=== PATIENT | male | born 1960 | race Caucasian/White ===

== ENCOUNTER 2017-03-19 05:49 | Inpatient (IN) | payer BC ==
--- NOTE | 2017-03-19 06:27 | ED ---
Weakness HPI - General Chief complaint: Weakness Stated complaint: afib Time Seen by Provider: 03/19/17 06:16 Source: patient Mode of arrival: wheelchair Limitations: no limitations - History of Present Illness Initial comments: This patient is a 56-year-old man who lives in [facility] but is in the area visiting family member. He does give history of paroxysmal atrial fibrillation. He states that he started having similar symptoms to previous episodes early this morning. He noted that he was developing exertional dyspnea and generalized weakness. He states that if he walks over about 10-15 feet he becomes winded, and this is what he has had previously with the atrial fibrillation. He denies feeling chest pain. He has not had diaphoresis, nausea or vomiting. Patient has not noted palpitations but states that he has not felt palpitations with the previous episodes. He has been compliant with his medical regimen. Patient denies leg pain or swelling. MD Complaint: lack of energy, difficulty walking -: hour(s) Consistency: constant Improves with: none Worsens with: exertion Context: history of similar Associated Symptoms: shortness of breath - Related Data Home Medications Medication Instructions Recorded Confirmed Apixaban [Eliquis] 5 mg PO BID 09/18/14 03/19/17 Propafenone Sr [Rythmol Sr] 225 mg PO Q12HR 03/19/17 03/19/17 Tamsulosin HCl [Flomax] 0.4 mg PO DAILY 03/19/17 03/19/17 Allergies Allergy/AdvReac Type Severity Reaction Status Date / Time No Known Allergies Allergy Verified 03/19/17 08:11 Review of Systems ROS Statement: Those systems with pertinent positive or pertinent negative responses have been documented in the HPI. ROS Other: All systems not noted in ROS Statement are negative. Constitutional: Reports: weakness Respiratory: Reports: dyspnea. Denies: cough, wheezes Cardiovascular: Reports: dyspnea on exertion. Denies: chest pain, palpitations , orthopnea, edema, syncope Gastrointestinal: Denies: abdominal pain, vomiting, diarrhea Musculoskeletal: Denies: back pain Skin: Denies: rash Neurological: Denies: headache, weakness, numbness, paresthesias Past Medical History Past Medical History: Atrial Fibrillation, Deep Vein Thrombosis (DVT) Additional Past Medical History / Comment(s): hypoglycemia, cardioversion, BPH History of Any Multi-Drug Resistant Organisms: None Reported Past Surgical History: Appendectomy, Hernia Repair Past Psychological History: No Psychological Hx Reported Smoking Status: Never smoker Past Alcohol Use History: Occasional Past Drug Use History: None Reported General Exam Limitations: no limitations General appearance: alert, in no apparent distress Head exam: Present: atraumatic, normocephalic Eye exam: Present: normal appearance. Absent: scleral icterus, conjunctival injection ENT exam: Present: normal oropharynx Respiratory exam: Present: normal lung sounds bilaterally. Absent: respiratory distress, wheezes, rales, rhonchi, stridor Cardiovascular Exam: Present: tachycardia, irregular rhythm, normal heart sounds. Absent: systolic murmur, diastolic murmur, rubs, gallop GI/Abdominal exam: Present: soft. Absent: distended, tenderness, guarding, rebound, rigid, mass Extremities exam: Present: normal inspection, normal capillary refill. Absent: pedal edema, calf tenderness Back exam: Present: normal inspection. Absent: CVA tenderness (R), CVA tenderness (L) Neurological exam: Present: alert Skin exam: Present: warm, dry, intact, normal color. Absent: rash Course Vital Signs 03/19/17 03/19/17 03/19/17 05:56 06:37 07:10 Temperature 97.0 F L Pulse Rate 65 155 H 78 Respiratory 20 20 16 Rate Blood Pressure 109/72 217/86 164/80 O2 Sat by Pulse 98 99 97 Oximetry 03/19/17 03/19/17 07:50 08:00 Temperature Pulse Rate 129 H 128 H Respiratory 16 16 Rate Blood Pressure 119/60 129/81 O2 Sat by Pulse 96 97 Oximetry EKG Findings - EKG Results: EKG: interpreted by ERMD, normal axis, normal QRS, normal ST/T EKG shows: tachycardia, atrial fibrillation (Rate approximately 148 bpm) Medical Decision Making - Medical Decision Making Patient's 56-year-old man with paroxysmal atrial fibrillation. Symptoms started morning. Case discussed with cardiology and will be admitted. - Lab Data Result diagrams: 03/19/17 06:20 03/19/17 06:20 Lab Results 03/19/17 03/19/17 03/19/17 Range/Units 06:20 06:20 06:20 WBC 5.2 (3.8-10.6) k/uL RBC 5.41 (4.30-5.90) m/uL Hgb 15.9 (13.0-17.5) gm/dL Hct 46.7 (39.0-53.0) % MCV 86.2 (80.0-100.0) fL MCH 29.3 (25.0-35.0) pg MCHC 34.0 (31.0-37.0) g/dL RDW 13.8 (11.5-15.5) % Plt Count 191 (150-450) k/uL Neutrophils % 58 % Lymphocytes % 26 % Monocytes % 9 % Eosinophils % 3 % Basophils % 1 % Neutrophils # 3.0 (1.3-7.7) k/uL Lymphocytes # 1.4 (1.0-4.8) k/uL Monocytes # 0.5 (0-1.0) k/uL Eosinophils # 0.1 (0-0.7) k/uL Basophils # 0.0 (0-0.2) k/uL PT (9.0-12.0) sec INR (<1.2) APTT (22.0-30.0) sec D-Dimer (<0.60) mg/L FEU Sodium 141 (137-145) mmol/L Potassium 4.1 (3.5-5.1) mmol/L Chloride 108 H (98-107) mmol/L Carbon Dioxide 22 (22-30) mmol/L Anion Gap 11 mmol/L BUN 22 H (9-20) mg/dL Creatinine 0.96 (0.66-1.25) mg/dL Est GFR (MDRD) Af Amer >60 (>60 ml/min/1.73 sqM) Est GFR (MDRD) Non-Af >60 (>60 ml/min/1.73 sqM) Glucose 117 H (74-99) mg/dL Calcium 9.3 (8.4-10.2) mg/dL Magnesium 1.8 (1.6-2.3) mg/dL Total Bilirubin 0.9 (0.2-1.3) mg/dL AST 20 (17-59) U/L ALT 37 (21-72) U/L Alkaline Phosphatase 58 (38-126) U/L Total Creatine Kinase 92 (55-170) U/L CK-MB (CK-2) 0.7 (0.0-2.4) ng/mL CK-MB (CK-2) Rel Index 0.8 Troponin I 0.021 (0.000-0.034) ng/mL Total Protein 6.3 (6.3-8.2) g/dL Albumin 3.7 (3.5-5.0) g/dL TSH 1.730 (0.465-4.680) mIU/L 03/19/17 Range/Units 06:20 WBC (3.8-10.6) k/uL RBC (4.30-5.90) m/uL Hgb (13.0-17.5) gm/dL Hct (39.0-53.0) % MCV (80.0-100.0) fL MCH (25.0-35.0) pg MCHC (31.0-37.0) g/dL RDW (11.5-15.5) % Plt Count (150-450) k/uL Neutrophils % % Lymphocytes % % Monocytes % % Eosinophils % % Basophils % % Neutrophils # (1.3-7.7) k/uL Lymphocytes # (1.0-4.8) k/uL Monocytes # (0-1.0) k/uL Eosinophils # (0-0.7) k/uL Basophils # (0-0.2) k/uL PT 10.3 (9.0-12.0) sec INR 1.1 (<1.2) APTT 26.1 (22.0-30.0) sec D-Dimer 0.24 (<0.60) mg/L FEU Sodium (137-145) mmol/L Potassium (3.5-5.1) mmol/L Chloride (98-107) mmol/L Carbon Dioxide (22-30) mmol/L Anion Gap mmol/L BUN (9-20) mg/dL Creatinine (0.66-1.25) mg/dL Est GFR (MDRD) Af Amer (>60 ml/min/1.73 sqM) Est GFR (MDRD) Non-Af (>60 ml/min/1.73 sqM) Glucose (74-99) mg/dL Calcium (8.4-10.2) mg/dL Magnesium (1.6-2.3) mg/dL Total Bilirubin (0.2-1.3) mg/dL AST (17-59) U/L ALT (21-72) U/L Alkaline Phosphatase (38-126) U/L Total Creatine Kinase (55-170) U/L CK-MB (CK-2) (0.0-2.4) ng/mL CK-MB (CK-2) Rel Index Troponin I (0.000-0.034) ng/mL Total Protein (6.3-8.2) g/dL Albumin (3.5-5.0) g/dL TSH (0.465-4.680) mIU/L - EKG Data -: EKG Interpreted by Mi EKG shows normal: axis (Normal), intervals (Normal), QRS complexes (Normal) Rate: tachycardia (Rate approximately 150 bpm) Interpretation: other (Atrial fibrillation) Critical Care Time Critical Care Time: Yes (30 minutes) Disposition Clinical Impression: Atrial fibrillation with rapid ventricular response Disposition: ADMITTED IP TO THIS [facility] Condition: Good
--- NOTE | 2017-03-19 06:46 | XR ---
EXAM: XR Chest, 1 View CLINICAL HISTORY: dysrhythmia TECHNIQUE: Frontal view of the chest. COMPARISON: Chest x-ray dated 09/18/2014. FINDINGS: Lungs: Unremarkable. The lungs are clear. Pleural space: Unremarkable. No pneumothorax. Heart: Unremarkable. No cardiomegaly. Mediastinum: Unremarkable. Bones/joints: Unremarkable. IMPRESSION: Normal chest x-ray.
[2017-03-19 06:53] LABS: D-Dimer 0.24 mg/L FEU (<0.60)
[2017-03-19 06:57] LABS: INR 1.1 (<1.2); Partial Thromboplastin Time 26.1 sec (22.0-30.0); Prothrombin Time 10.3 sec (9.0-12.0)
[2017-03-19 06:59] LABS: ALT 37 U/L (21-72); AST 20 U/L (17-59); Albumin 3.7 g/dL (3.5-5.0); Alkaline Phosphatase 58 U/L (38-126); Anion Gap 11 mmol/L; Blood Urea Nitrogen 22 mg/dL (9-20); Calcium 9.3 mg/dL (8.4-10.2); Carbon Dioxide 22 mmol/L (22-30); Chloride 108 mmol/L (98-107); Glucose 117 mg/dL (74-99); Magnesium 1.8 mg/dL (1.6-2.3); Potassium 4.1 mmol/L (3.5-5.1); Sodium 141 mmol/L (137-145); Total Bilirubin 0.9 mg/dL (0.2-1.3); Total Protein 6.3 g/dL (6.3-8.2)
[2017-03-19 07:10] LABS: Basophils % (A) 1 %; Eosinophils # (A) 0.1 k/uL (0-0.7); Eosinophils % (A) 3 %; HCT 46.7 % (39.0-53.0); HGB 15.9 gm/dL (13.0-17.5); Lymphocytes # (A) 1.4 k/uL (1.0-4.8); Lymphocytes % (A) 26 %; MCH 29.3 pg (25.0-35.0); MCV 86.2 fL (80.0-100.0); Mean Platelet Volume 7.8; Monocytes # (A) 0.5 k/uL (0-1.0); Monocytes % (A) 9 %; Neutrophils % (A) 58 %; Platelet Count 191 k/uL (150-450); RBC 5.41 m/uL (4.30-5.90); RDW 13.8 % (11.5-15.5); WBC 5.2 k/uL (3.8-10.6)
[2017-03-19] MEDS ORDERED: PROPAFENONE 150 MG TAB PO STA (07:18)
[2017-03-19] MEDS ORDERED: DILTIAZEM 5 MG/ML 5 ML VIAL IVP STA (07:19)
[2017-03-19] MEDS ORDERED: DILTIAZEM 125 MG in SODIUM CHLORIDE 0.9% 100 ML IV ONE (07:19)
[2017-03-19 07:22] LABS: Creatine Kinase MB 0.7 ng/mL (0.0-2.4); Troponin I 0.021 ng/mL (0.000-0.034)
[2017-03-19] MEDS ORDERED: NITROGLYCERIN SL TABS 0.4 MG TAB SUBLINGUAL PRN (08:31)
[2017-03-19] MEDS ORDERED: APIXABAN 5 MG TAB PO STA (08:50)
[2017-03-19] MEDS ORDERED: PROPAFENONE 225 MG PO STA (08:50)
[2017-03-19] MEDS: PROPAFENONE 150 MG TAB PO SCH ×3 (09:09→21:17)
[2017-03-19] MEDS: TAMSULOSIN 0.4 MG CAP.ER.24H PO STA ×2 (09:20→09:21)
[2017-03-19 13:32] LABS: Creatine Kinase MB 0.8 ng/mL (0.0-2.4); Troponin I 0.014 ng/mL (0.000-0.034)
[2017-03-19 15:52] VITALS: RESP 18
[2017-03-19] MEDS: SODIUM CHLORIDE 0.9% 1,000 ML IV SCH ×3 (16:43→21:16)
[2017-03-19 19:42] LABS: Creatine Kinase 69 U/L (55-170)
[2017-03-19 19:56] LABS: Creatine Kinase MB 0.7 ng/mL (0.0-2.4); Troponin I <0.012 ng/mL (0.000-0.034)
--- NOTE | 2017-03-19 21:12 | P.HPIM ---
History of Present Illness H&P Date: 03/19/17 Chief Complaint: Dizziness and weakness Patient is a 56-year-old male with a known history of paroxysmal atrial fibrillation, history of cardioversion, BPH and history of DVT who lives in [facility] but is in the area visiting his mother at [place]. He states that he started having symptoms of rapid ventricular rate around 3 AM last night.. He noted that he was developing exertional dyspnea and generalized weakness. He states that if he walks over about 10-15 feet he becomes winded, and this is what he has had previously with the atrial fibrillation. He denies feeling chest pain. He has not had diaphoresis, nausea or vomiting. Patient has not noted palpitations but states that he has not felt palpitations with the previous episodes. He has been compliant with his medical regimen. Patient does take propafenone currently. Patient says that he was tried on different medications for rate control previously. Patient denies leg pain or swelling. Denied any history of coronary artery disease. EKG atrial fibrillation with a rapid regular rate of 148 Chest x-ray showed no acute cardio pulmonary process TSH within normal limits Troponin 3 negative Review of Systems Constitutional: Patient denies any fever or chills . Positive generalized weakness and in no weight loss. Abdomen: Patient denied nausea vomiting and diarrhea and abdominal pain. Cardiovascular: Patient denies any chest pain or short of breath no palpitations. Did have dizziness and exertional short of breath Respiratory: patient denied any cough is from production. No shortness of breath Neurologic: Patient denied any numbness or tingling headache. Musculoskeletal: Patient denies any complaints of joint swelling or deformity. Skin: Negative Psychiatric: Negative Endocrine: No heat or cold intolerance. No recent weight gain. Genitourinary: No dysuria or hematuria. All other 14 point ROS negative except the above Past Medical History Past Medical History: Atrial Fibrillation, Deep Vein Thrombosis (DVT), Prostate Disorder Additional Past Medical History / Comment(s): Paroxysmal Afib, DVT L leg after long flight, hypoglycemia but not for years, BPH History of Any Multi-Drug Resistant Organisms: None Reported Past Surgical History: Appendectomy, Hernia Repair Additional Past Surgical History / Comment(s): Incisional hernia repair after appendectomy, cardioversions x 3, colonoscopy-normal, R knee Lucia's cystectomy Past Anesthesia/Blood Transfusion Reactions: No Reported Reaction Smoking Status: Never smoker - Past Family History Mother Family Medical History: Blood Disorder, Deep Vein Thrombosis (DVT), Musculoskeletal Disorder, Neurologic Disorder Additional Family Medical History / Comment(s): Mother has parkinson's dx and recently diagnosed with hypercoagulopathy. She has had a couple DVTs. Medications and Allergies Home Medications Medication Instructions Recorded Confirmed Type Apixaban [Eliquis] 5 mg PO BID 09/18/14 03/19/17 History Propafenone Sr [Rythmol Sr] 225 mg PO Q12HR 03/19/17 03/19/17 History Tamsulosin HCl [Flomax] 0.4 mg PO DAILY 03/19/17 03/19/17 History Allergies Allergy/AdvReac Type Severity Reaction Status Date / Time No Known Allergies Allergy Verified 03/19/17 08:11 Physical Exam Vitals: Vital Signs Temp Pulse Resp BP Pulse Ox 03/19/17 13:02 77 16 111/69 97 03/19/17 09:00 110 H 16 109/80 98 03/19/17 08:00 128 H 16 129/81 97 03/19/17 07:50 129 H 16 119/60 96 03/19/17 07:10 78 16 164/80 97 03/19/17 06:37 155 H 20 217/86 99 03/19/17 05:56 97.0 F L 65 20 109/72 98 Intake and Output 03/18/17 03/19/17 03/19/17 22:59 06:59 14:59 Other: Weight 106.594 kg PHYSICAL EXAMINATION: Patient is lying in the bed comfortably, no acute distress, awake alert and oriented.. HEENT: Normocephalic. Neck is supple. Pupils reactive. Nostrils clear. Oral cavity is moist. Ears reveal no drainage. Neck reveals no JVD, carotid bruits, or thyromegaly. CHEST EXAMINATION: Trachea is central. Symmetrical expansion. Lung hernández clear to auscultation and percussion. CARDIAC: Normal S1, S2 with no gallops. No murmurs ABDOMEN: Soft. Bowel sounds normal. No organomegaly. No abdominal bruits. Extremities: reveal no edema. No clubbing or cyanosis Neurologically awake, alert, oriented x3 with well-coordinated movements. No focal deficits noted Skin: No rash or skin lesions. Psychiatric: Coperative. Nonsuicidal Musculoskeletal: No joint swelling or deformity. Normal range of motion. Results CBC & Chem 7: 03/19/17 06:20 03/19/17 06:20 Labs: Abnormal Lab Results - Last 24 Hours (Table) 03/19/17 Range/Units 06:20 Chloride 108 H (98-107) mmol/L BUN 22 H (9-20) mg/dL Glucose 117 H (74-99) mg/dL Thrombosis Risk Factor Assmnt - Choose All That Apply Any of the Below Risk Factors Present?: Yes Each Factor Represents 1 point: Age 41-60 years, Obesity (BMI >25) Other Risk Factors: Yes Each Risk Factor Represents 3 Points: Family history of DVT/PE, History of DVT/ PE Other congenital or acquired thrombophilia - If yes, enter type in comment: No Thrombosis Risk Factor Assessment Total Risk Factor Score: 8 Thrombosis Risk Factor Assessment Level: High Risk Assessment and Plan Assessment: Atrial fibrillation with a rapid regular rate Paroxysmal atrial fibrillation History of DVT BPH Plan: Patient will be continued on Cardizem drip. Patient does take propafenone at home and also anti-regulation with apixaban. Continue with telemetry monitoring. Serial troponins are negative. Patient is currently in sinus rhythm. Denied any exertional short of breath at this time. Will follow closely. Further conditions based on the clinical course. Time with Patient: Greater than 30
[2017-03-19] MEDS: APIXABAN 5 MG TAB PO SCH (21:17)
[2017-03-19 23:41] LABS: Cholesterol 210 mg/dL (<200); HDL Cholesterol 30 mg/dL (40-60); Triglycerides 403 mg/dL (<150)
[2017-03-20] MEDS: SODIUM CHLORIDE 0.9% 1,000 ML IV SCH (04:27)
[2017-03-20] MEDS ORDERED: ASPIRIN 325 MG TAB PO SCH (09:00)
[2017-03-20] MEDS ORDERED: TAMSULOSIN 0.4 MG CAP.ER.24H PO SCH (09:00)
[2017-03-20] MEDS: APIXABAN 5 MG TAB PO SCH (09:09)
[2017-03-20] MEDS: PROPAFENONE 150 MG TAB PO SCH (09:10)
[2017-03-20 10:21] VITALS: BP 141/90; PULSE 82; TEMP 97.6
--- NOTE | 2017-03-20 11:40 | P.CRDCN ---
History of Present Illness Consult date: 03/20/17 Requesting physician: Jeri Aguilar Reason for Consult (text): This is a pleasant 56-year-old gentleman with history of a small atrial fibrillation with rapid ventricular response, symptomatic. He lives in [facility] and is here visiting his mother. Resonant to the emergency department with complaint of dyspnea, generalized weakness and rapid heartbeat. His found to be in atrial fibrillation with rapid ventricular response was given a bolus dose of Rythmol which she is on at home and started on a Cardizem drip. Upon admission, chest x-ray showed no acute cardiopulmonary process. His troponins have been negative 3. He has converted to sinus rhythm. Currently on Rythmol 150 mg by mouth 3 times a day. He is on Rythmol SR 225 mg by mouth twice a day home. According to the patient, he has put on a bit of weight and has had been having sleeping issues which he feels may have contributed to his atrial fibrillation. He does follow regularly with a owner/photographer near his home. TSH was normal. Upon examination, he sitting up at the site of the bed in no acute distress. He denies complaints of chest discomfort, shortness of breath, dizziness, palpitations, edema or syncope. He is feeling quite a bit better since conversion to sinus rhythm. Past Medical History Past Medical History: Atrial Fibrillation, Deep Vein Thrombosis (DVT), Prostate Disorder Additional Past Medical History / Comment(s): Paroxysmal Afib, DVT L leg after long flight, hypoglycemia but not for years, BPH History of Any Multi-Drug Resistant Organisms: None Reported Past Surgical History: Appendectomy, Hernia Repair Additional Past Surgical History / Comment(s): Incisional hernia repair after appendectomy, cardioversions x 3, colonoscopy-normal, R knee Lucia's cystectomy Past Anesthesia/Blood Transfusion Reactions: No Reported Reaction Smoking Status: Never smoker - Past Family History Mother Family Medical History: Blood Disorder, Deep Vein Thrombosis (DVT), Musculoskeletal Disorder, Neurologic Disorder Additional Family Medical History / Comment(s): Mother has parkinson's dx and recently diagnosed with hypercoagulopathy. She has had a couple DVTs. Medications and Allergies Home Medications Medication Instructions Recorded Confirmed Type Apixaban [Eliquis] 5 mg PO BID 09/18/14 03/19/17 History Propafenone Sr [Rythmol Sr] 225 mg PO Q12HR 03/19/17 03/19/17 History Tamsulosin HCl [Flomax] 0.4 mg PO DAILY 03/19/17 03/19/17 History Allergies Allergy/AdvReac Type Severity Reaction Status Date / Time No Known Allergies Allergy Verified 03/19/17 08:11 Physical Exam Vitals: Vital Signs Temp Pulse Pulse Resp BP BP Pulse Ox 03/20/17 08:00 97.6 F 82 18 141/90 98 03/20/17 04:00 98.3 F 80 18 129/75 96 03/20/17 00:00 98.3 F 80 18 122/73 95 03/19/17 20:00 97.7 F 75 18 124/69 96 03/19/17 15:57 74 18 03/19/17 15:49 74 18 111/67 96 03/19/17 13:02 77 16 111/69 97 Intake and Output 03/19/17 03/20/17 03/20/17 22:59 06:59 14:59 Intake Total 240 180 Balance 240 180 Intake: Oral 240 180 Other: Voiding Method Toilet Toilet # Voids 0 1 Weight 110.3 kg PHYSICAL EXAMINATION: HEENT: Head is atraumatic, normocephalic. Pupils equal, round. Neck is supple. There is no elevated jugular venous pressure. HEART EXAMINATION: Heart sounds regular, S1 and S2 normal. No murmur or gallop heard. CHEST EXAMINATION: Lungs are clear to auscultation and precussion. No chest wall tenderness is noted on palpation or with deep breathing. ABDOMEN: Soft, nontender. Bowel sounds are heard. No organomegaly noted. EXTREMITIES: 2+ peripheral pulses with no evidence of peripheral edema and no calf tenderness noted. NEUROLOGIC patient is awake, alert and oriented x3. . Results 03/19/17 06:20 03/19/17 06:20 Cardiac Enzymes 03/19/17 03/19/17 Range/Units 11:49 18:45 CK-MB (CK-2) 0.8 0.7 (0.0-2.4) ng/mL Troponin I 0.014 <0.012 (0.000-0.034) ng/mL Lipids 03/19/17 Range/Units 06:20 Triglycerides 403 H (<150) mg/dL Cholesterol 210 H (<200) mg/dL HDL Cholesterol 30 L (40-60) mg/dL Current Medications Generic Name Dose Route Start Last Admin Trade Name Poly PRN Reason Stop Dose Admin Apixaban 5 mg 03/19/17 21:00 03/20/17 09:09 Eliquis PO 5 mg BID KELSEY Administration Aspirin 325 mg 03/20/17 09:00 03/20/17 09:09 Aspirin PO 325 mg DAILY KELSEY Administration Sodium Chloride 1,000 mls @ 150 mls/hr 03/19/17 08:45 03/20/17 04:27 Saline 0.9% IV Not Given .[id number] KELSEY Nitroglycerin 0.4 mg 03/19/17 08:31 Nitrostat SUBLINGUAL Q5M PRN Chest Pain Propafenone HCl 150 mg 03/19/17 09:00 03/20/17 09:10 Rythmol PO 150 mg TID KELSEY Administration Tamsulosin HCl 0.4 mg 03/20/17 09:00 03/20/17 09:10 Flomax PO 0.4 mg DAILY KELSEY Administration Intake and Output 03/19/17 03/20/17 03/20/17 22:59 06:59 14:59 Intake Total 240 180 Balance 240 180 Intake: Oral 240 180 Other: Voiding Method Toilet Toilet # Voids 0 1 Weight 110.3 kg 03/19/17 06:20 03/19/17 06:20 EKG Interpretations (text) Initial EKG showed atrial fibrillation with rapid ventricular response, subsequent EKG shows sinus rhythm Assessment and Plan Assessment: #1 paroxysmal atrial fibrillation with rapid ventricular response, symptomatic #2 possible sleep apnea #3 obesity #4 dyslipidemia Plan: From cardiology's perspective, patient may be discharged home today we will send him on Cardizem 60 mg by mouth 3 times a day. He will resume his home dose of Rythmol SR 225 mg by mouth twice a day. He's been advised to exercise and lose weight. He is hesitant to take medications for dyslipidemia due to family history of myositis with statins. Follow-up with his primary owner/photographer upon return to [facility]. ORGANIZATIONAL DEVELOPMENT SPECIALIST note has been reviewed, I agree with a documented findings and plan of care. Patient was seen and examined.
--- NOTE | 2017-03-20 23:19 | P.DS ---
Providers Date of admission: 03/19/17 08:31 Expected date of discharge: 03/20/17 Attending physician: Jeri Aguilar Consults: 03/19/17 08:31 Consult Physician Urgent Consulting Provider: Ata Encinas Consult Reason/Comments: Atrial fibrillation with rapid ventricular rate Do you want consulting provider notified?: Already Contacted Primary care physician: Stated None Hospital Course: Discharge diagnosis Atrial fibrillation with a rapid regular rate Paroxysmal atrial fibrillation History of DVT BPH Hospital course Patient is a 56-year-old male with a known history of paroxysmal atrial fibrillation, history of cardioversion, BPH and history of DVT who lives in [facility] but is in the area visiting his mother at [place]. He states that he started having symptoms of rapid ventricular rate around 3 AM last night.. He noted that he was developing exertional dyspnea and generalized weakness. He states that if he walks over about 10-15 feet he becomes winded, and this is what he has had previously with the atrial fibrillation. He denies feeling chest pain. He has not had diaphoresis, nausea or vomiting. Patient has not noted palpitations but states that he has not felt palpitations with the previous episodes. He has been compliant with his medical regimen. Patient does take propafenone currently. Patient says that he was tried on different medications for rate control previously. Patient denies leg pain or swelling. Denied any history of coronary artery disease. EKG atrial fibrillation with a rapid regular rate of 148 Chest x-ray showed no acute cardio pulmonary process TSH within normal limits Troponin 3 negative Patient was continued on Cardizem drip. Heart rate is controlled now. Cardiology recommended Cardizem 60 mg 3 times a day. Patient does take propafenone at home and also anti-regulation with apixaban. Continued with telemetry monitoring. Serial troponins are negative. Patient is currently in sinus rhythm. Denied any exertional short of breath at this time. Otherwise patient is stable to be discharged home and follow with his fashion stylist at [facility]. Discharge physical examination was done and vitals reviewed Patient Condition at Discharge: Good Plan - Discharge Summary Discharge Rx Participant: No New Discharge Prescriptions: Continue Apixaban [Eliquis] 5 mg PO BID Tamsulosin HCl [Flomax] 0.4 mg PO DAILY Propafenone Sr [Rythmol Sr] 225 mg PO Q12HR Discharge Medication List Apixaban [Eliquis] 5 mg PO BID 09/18/14 [History] Propafenone Sr [Rythmol Sr] 225 mg PO Q12HR 03/19/17 [History] Tamsulosin HCl [Flomax] 0.4 mg PO DAILY 03/19/17 [History] Follow up Appointment(s)/Referral(s): None,Stated [Primary Care Provider] - 1-2 days Activity/Diet/Wound Care/Special Instructions: Diet cardiac activity Limited until follow up Discharge Disposition: HOME SELF-CARE
== END 2017-03-20 13:14 | disposition home or self-care (01) | DRG 310 ==
LOC: EC 05:49 → 6SEL 08:31
PROVIDERS: ADMIT Hospitalist; ATTEND Hospitalist
DX: I48.0 Paroxysmal atrial fibrillation (principal); E66.9 Obesity, unspecified; N40.0 Benign prostatic hyperplasia without lower urinary tract symptoms; Z86.718 Personal history of other venous thrombosis and embolism; Z79.01 Long term (current) use of anticoagulants; E78.5 Hyperlipidemia, unspecified; Z82.0 Family history of epilepsy and other diseases of the nervous system; Z79.899 Other long term (current) drug therapy; Z71.3 Dietary counseling and surveillance; G47.30 Sleep apnea, unspecified; Z68.32 Body mass index [BMI] 32.0-32.9, adult
CPT/HCPCS: 36415; 71045; 80053; 80061; 82550; 82553; 83735; 84443; 84484; 85025; 85379; 85610; 85730; 93005; 96365; 96366; 96376; 99291

== ENCOUNTER 2021-04-12 02:38 | Emergency (ER) | payer BC ==
[2021-04-12] MEDS ORDERED: SODIUM CHLORIDE 0.9% 1,000 ML IV STA (02:49)
[2021-04-12 02:53] VITALS: RESP 18
[2021-04-12 03:20] LABS: Basophils % (A) 0 %; Eosinophils # (A) 0.1 k/uL (0-0.7); Eosinophils % (A) 3 %; HGB 15.6 gm/dL (13.0-17.5); Lymphocytes # (A) 1.6 k/uL (1.0-4.8); Lymphocytes % (A) 33 %; MCH 30.8 pg (25.0-35.0); MCHC 33.8 g/dL (31.0-37.0); MCV 91.1 fL (80.0-100.0); Mean Platelet Volume 7.5; Monocytes # (A) 0.4 k/uL (0-1.0); Monocytes % (A) 8 %; Neutrophils # (A) 2.6 k/uL (1.3-7.7); Neutrophils % (A) 53 %; Platelet Count 172 k/uL (150-450); RBC 5.05 m/uL (4.30-5.90); RDW 14.5 % (11.5-15.5); WBC 4.9 k/uL (3.8-10.6)
[2021-04-12] MEDS ORDERED: DILTIAZEM 5 MG/ML 5 ML VIAL IVP STA ×2 (03:21→05:09)
[2021-04-12] MEDS ORDERED: METOPROLOL TARTRATE 5 MG/5 ML VIAL IVP STA (03:21)
[2021-04-12 03:22] LABS: Appearance,Urine Clear (Clear); Bilirubin,Urine Negative (Negative); Blood,Urine Negative (Negative); Color,Urine Colorless; Glucose,Urine (UA) Negative (Negative); Ketones,Urine Trace (Negative); Leukocyte Esterase,Urine Negative (Negative); Nitrite,Urine Negative (Negative); Protein,Urine Negative (Negative); Specific Gravity,Urine 1.004 (1.001-1.035); Urobilinogen,Urine <2.0 mg/dL (<2.0)
[2021-04-12 03:31] LABS: Partial Thromboplastin Time 25.3 sec (22.0-30.0); Prothrombin Time 10.7 sec (9.0-12.0)
[2021-04-12] MEDS ORDERED: PROPAFENONE 150 MG TAB PO STA (03:44)
--- NOTE | 2021-04-12 03:45 | ED ---
Arrhythmia/Palpitations HPI - General Chief Complaint: Arrhythmia/Palpitations Stated Complaint: Afib Time Seen by Provider: 04/12/21 02:46 Source: patient, EMS, RN notes reviewed, old records reviewed Mode of arrival: EMS Limitations: no limitations - History of Present Illness Initial Comments: This is a 60-year-old male presented today to the ER for evaluation of atrial fibrillation increased heart rate and palpitations. Patient states this happens to about twice ER especially when he stress and patient is going to significant distress here in the visit support here on area as he is here for a family couple other problems going out of same time. Patient has no fevers no chest pain no other complaints. MD Complaint: rapid heart beat, "heart racing", irregular heart beat, atrial fibrillation -: hour(s) Context: occurred during rest, awoke with symptoms Arrhythmia History: atrial fibrillation, on anti-coagulants, history of electri joselo cardioversion Associated Symptoms: anxiety Treatments Prior to Arrival: propafenone/rythmol, beta-sean - Related Data Home Medications Medication Instructions Recorded Confirmed Apixaban [Eliquis] 5 mg PO BID 09/18/14 03/19/17 Propafenone Sr [Rythmol Sr] 225 mg PO Q12HR 03/19/17 03/19/17 Tamsulosin HCl [Flomax] 0.4 mg PO DAILY 03/19/17 03/19/17 Previous Rx's Medication Instructions Recorded Diltiazem Oral [Cardizem] 30 mg PO QID PRN #10 tab 04/12/21 Metoprolol Tartrate [Lopressor] 50 mg PO BID PRN #10 tab 04/12/21 Allergies Allergy/AdvReac Type Severity Reaction Status Date / Time No Known Allergies Allergy Verified 03/19/17 08:11 Review of Systems ROS Statement: Those systems with pertinent positive or pertinent negative responses have been documented in the HPI. ROS Other: All systems not noted in ROS Statement are negative. Past Medical History Past Medical History: Atrial Fibrillation, Deep Vein Thrombosis (DVT), Prostate Disorder Additional Past Medical History / Comment(s): Paroxysmal Afib, DVT L leg after long flight, hypoglycemia but not for years, BPH History of Any Multi-Drug Resistant Organisms: None Reported Past Surgical History: Appendectomy, Hernia Repair Additional Past Surgical History / Comment(s): Incisional hernia repair after appendectomy, cardioversions x 3, colonoscopy-normal, R knee Lucia's cystectomy Past Anesthesia/Blood Transfusion Reactions: No Reported Reaction Past Psychological History: No Psychological Hx Reported Smoking Status: Never smoker Past Alcohol Use History: Occasional Past Drug Use History: None Reported - Past Family History Mother Family Medical History: Blood Disorder, Deep Vein Thrombosis (DVT), Musculoskeletal Disorder, Neurologic Disorder Additional Family Medical History / Comment(s): Mother has parkinson's dx and recently diagnosed with hypercoagulopathy. She has had a couple DVTs. General Exam General appearance: alert, in no apparent distress Head exam: Present: atraumatic, normocephalic, normal inspection Eye exam: Present: normal appearance, PERRL, EOMI. Absent: scleral icterus, conjunctival injection, periorbital swelling ENT exam: Present: normal exam, mucous membranes moist Neck exam: Present: normal inspection. Absent: tenderness, meningismus, lymphadenopathy Respiratory exam: Present: normal lung sounds bilaterally. Absent: respiratory distress, wheezes, rales, rhonchi, stridor Cardiovascular Exam: Present: tachycardia, irregular rhythm, normal heart sounds. Absent: systolic murmur, diastolic murmur, rubs, gallop, clicks GI/Abdominal exam: Present: soft, normal bowel sounds. Absent: distended, tenderness, guarding, rebound, rigid Extremities exam: Present: normal inspection, full ROM, normal capillary refill. Absent: tenderness, pedal edema, joint swelling, calf tenderness Back exam: Present: normal inspection Neurological exam: Present: alert, oriented X3, CN II-XII intact Psychiatric exam: Present: normal affect, normal mood Skin exam: Present: warm, dry, intact, normal color. Absent: rash Course Vital Signs 04/12/21 04/12/21 04/12/21 02:46 03:54 03:57 Temperature 98.1 F Pulse Rate 103 H 126 H Pulse Rate [ 120 H Data Entry Manager ] Respiratory 18 18 Rate Blood Pressure 124/103 150/108 O2 Sat by Pulse 98 95 Oximetry 04/12/21 04/12/21 04/12/21 04:00 04:30 05:00 Temperature Pulse Rate 120 H 96 90 Pulse Rate [ Data Entry Manager ] Respiratory 18 18 18 Rate Blood Pressure 108/86 97/67 107/75 O2 Sat by Pulse 95 95 95 Oximetry 04/12/21 05:30 Temperature Pulse Rate 92 Pulse Rate [ Data Entry Manager ] Respiratory 18 Rate Blood Pressure 117/71 O2 Sat by Pulse 95 Oximetry - Reevaluation(s) Reevaluation #1: 04/12/21 05:08 medical record is reviewed Reevaluation #2: 04/12/21 06:03 patient symptoms are improved heart rate is improved with patient still in atrial fibrillation with rate control Reevaluation #3: 04/12/21 06:04 patient is informed of results and questions are answered EKG Findings - EKG Comments: EKG Findings:: EKG shows A. fib with RVR 112 QRS 100 QTc 355 Medical Decision Making - Medical Decision Making 60 male to the emergency department in atrial fibrillation with RVR having stressful event in town for family wedding. Patient states is recurrent pain fr om about twice a year. 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 at this time is stable for discharge home - Lab Data Result diagrams: 04/12/21 02:48 04/12/21 02:48 Lab Results 04/12/21 04/12/21 04/12/21 Range/Units 02:48 02:48 02:48 WBC 4.9 (3.8-10.6) k/uL RBC 5.05 (4.30-5.90) m/uL Hgb 15.6 (13.0-17.5) gm/dL Hct 46.0 (39.0-53.0) % MCV 91.1 (80.0-100.0) fL MCH 30.8 (25.0-35.0) pg MCHC 33.8 (31.0-37.0) g/dL RDW 14.5 (11.5-15.5) % Plt Count 172 (150-450) k/uL MPV 7.5 Neutrophils % 53 % Lymphocytes % 33 % Monocytes % 8 % Eosinophils % 3 % Basophils % 0 % Neutrophils # 2.6 (1.3-7.7) k/uL Lymphocytes # 1.6 (1.0-4.8) k/uL Monocytes # 0.4 (0-1.0) k/uL Eosinophils # 0.1 (0-0.7) k/uL Basophils # 0.0 (0-0.2) k/uL PT 10.7 (9.0-12.0) sec INR 1.0 (<1.2) APTT 25.3 (22.0-30.0) sec Sodium (137-145) mmol/L Potassium (3.5-5.1) mmol/L Chloride (98-107) mmol/L Carbon Dioxide (22-30) mmol/L Anion Gap mmol/L BUN (9-20) mg/dL Creatinine (0.66-1.25) mg/dL Est GFR (CKD-EPI)AfAm (>60 ml/min/1.73 sqM) Est GFR (CKD-EPI)NonAf (>60 ml/min/1.73 sqM) Glucose (74-99) mg/dL Calcium (8.4-10.2) mg/dL Phosphorus (2.5-4.5) mg/dL Magnesium (1.6-2.3) mg/dL Total Bilirubin (0.2-1.3) mg/dL AST (17-59) U/L ALT (4-49) U/L Alkaline Phosphatase (38-126) U/L Troponin I (0.000-0.034) ng/mL NT-Pro-B Natriuret Pep pg/mL Total Protein (6.3-8.2) g/dL Albumin (3.5-5.0) g/dL Urine Color Colorless Urine Appearance Clear (Clear) Urine pH 6.0 (5.0-8.0) Ur Specific [place] 1.004 (1.001-1.035) Urine Protein Negative (Negative) Urine Glucose (UA) Negative (Negative) Urine Ketones Trace H (Negative) Urine Blood Negative (Negative) Urine Nitrite Negative (Negative) Urine Bilirubin Negative (Negative) Urine Urobilinogen <2.0 (<2.0) mg/dL Ur Leukocyte Esterase Negative (Negative) 04/12/21 04/12/21 04/12/21 Range/Units 02:48 02:48 02:48 WBC (3.8-10.6) k/uL RBC (4.30-5.90) m/uL Hgb (13.0-17.5) gm/dL Hct (39.0-53.0) % MCV (80.0-100.0) fL MCH (25.0-35.0) pg MCHC (31.0-37.0) g/dL RDW (11.5-15.5) % Plt Count (150-450) k/uL MPV Neutrophils % % Lymphocytes % % Monocytes % % Eosinophils % % Basophils % % Neutrophils # (1.3-7.7) k/uL Lymphocytes # (1.0-4.8) k/uL Monocytes # (0-1.0) k/uL Eosinophils # (0-0.7) k/uL Basophils # (0-0.2) k/uL PT (9.0-12.0) sec INR (<1.2) APTT (22.0-30.0) sec Sodium 140 (137-145) mmol/L Potassium 4.1 (3.5-5.1) mmol/L Chloride 108 H (98-107) mmol/L Carbon Dioxide 21 L (22-30) mmol/L Anion Gap 11 mmol/L BUN 26 H (9-20) mg/dL Creatinine 0.82 (0.66-1.25) mg/dL Est GFR (CKD-EPI)AfAm >90 (>60 ml/min/1.73 sqM) Est GFR (CKD-EPI)NonAf >90 (>60 ml/min/1.73 sqM) Glucose 88 (74-99) mg/dL Calcium 9.0 (8.4-10.2) mg/dL Phosphorus 4.2 (2.5-4.5) mg/dL Magnesium 2.0 (1.6-2.3) mg/dL Total Bilirubin 1.1 (0.2-1.3) mg/dL AST 29 (17-59) U/L ALT 25 (4-49) U/L Alkaline Phosphatase 48 (38-126) U/L Troponin I <0.012 (0.000-0.034) ng/mL NT-Pro-B Natriuret Pep 45 pg/mL Total Protein 6.7 (6.3-8.2) g/dL Albumin 4.1 (3.5-5.0) g/dL Urine Color Urine Appearance (Clear) Urine pH (5.0-8.0) Ur Specific [place] (1.001-1.035) Urine Protein (Negative) Urine Glucose (UA) (Negative) Urine Ketones (Negative) Urine Blood (Negative) Urine Nitrite (Negative) Urine Bilirubin (Negative) Urine Urobilinogen (<2.0) mg/dL Ur Leukocyte Esterase (Negative) Disposition Clinical Impression: Atrial fibrillation with rapid ventricular response, Atrial fibrillation Disposition: HOME SELF-CARE Condition: Good Instructions (If sedation given, give patient instructions): Heart Palpitations (ED) Prescriptions: Diltiazem Oral [Cardizem] 30 mg PO QID PRN #10 tab PRN Reason: Tachyarrhythmias Metoprolol Tartrate [Lopressor] 50 mg PO BID PRN #10 tab PRN Reason: Tachyarrhythmias Is patient prescribed a controlled substance at d/c from ED?: No Referrals: Nonstaff,Physician [REFERRING] - 1-2 days
[2021-04-12 04:04] LABS: ALT 25 U/L (4-49); AST 29 U/L (17-59); African American GFR (CKD) >90 (>60 ml/min/1.73 sqM); Albumin 4.1 g/dL (3.5-5.0); Alkaline Phosphatase 48 U/L (38-126); Anion Gap 11 mmol/L; Blood Urea Nitrogen 26 mg/dL (9-20); Carbon Dioxide 21 mmol/L (22-30); Chloride 108 mmol/L (98-107); Glucose 88 mg/dL (74-99); Non-African American GFR(CKD) >90 (>60 ml/min/1.73 sqM); Phosphorus 4.2 mg/dL (2.5-4.5); Potassium 4.1 mmol/L (3.5-5.1); Sodium 140 mmol/L (137-145); Total Bilirubin 1.1 mg/dL (0.2-1.3); Total Protein 6.7 g/dL (6.3-8.2)
[2021-04-12] MEDS ORDERED: DILTIAZEM ORAL 60 MG TAB PO STA (06:01)
[2021-04-12] MEDS ORDERED: METOPROLOL SUCCINATE (ER) 50 MG TAB.ER.24H PO STA (06:01)
[2021-04-12 06:39] VITALS: BP 153/83; PULSE 112; TEMP 98.6
== END 2021-04-12 06:22 | disposition home or self-care (01) ==
LOC: EC 02:38
DX: I48.91 Unspecified atrial fibrillation (principal)
CPT/HCPCS: 36415; 80053; 81003; 83735; 83880; 84100; 84484; 85025; 85610; 85730; 93005; 96361; 96374; 96375; 96376; 99285